=== PATIENT | female | born 1985 | race Caucasian/White ===

== ENCOUNTER 2017-12-24 10:51 | Emergency (ER) | payer OTHER ==
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
[2017-12-24] MEDS ORDERED: Norco 10/325 MG Tablet PO ONE (12:41)
[2017-12-24] MEDS ORDERED: Cyclobenzaprine 10 MG PO ONE (12:41)
[2017-12-24] MEDS ORDERED: Norco 10/325 MG Tablet ONE (12:44)
[2017-12-24] MEDS ORDERED: Cyclobenzaprine 10 MG ONE (12:44)
[2017-12-24 12:50] VITALS: BP 155/98; PULSE 92
[2017-12-24 12:51] VITALS: O2SAT 99
== END 2017-12-24 13:25 | disposition home or self-care (01) ==
LOC: ED 10:51
DX: M54.2 Cervicalgia (principal); S16.1XXA Strain of muscle, fascia and tendon at neck level, initial encounter; S10.93XA Contusion of unspecified part of neck, initial encounter; M54.5 Low back pain; M25.552 Pain in left hip; M25.551 Pain in right hip; V53.5XXA Driver of pick-up truck or van injured in collision with car, pick-up truck or van in traffic accident, initial encounter
CPT/HCPCS: 72050; 72100; 72170; 99284; A9270-GY

== ENCOUNTER 2018-07-20 15:54 | Emergency (ER) | payer OTHER ==
[2018-07-20] MEDS ORDERED: Zofran 4 MG/2 ML VIAL IV ONE (17:02)
[2018-07-20] MEDS ORDERED: Sodium Chloride 0.9% 1000 ML 1,000 ML IV STA (17:02)
[2018-07-20] MEDS ORDERED: Zofran 4 MG/2 ML VIAL ONE (17:09)
[2018-07-20] MEDS ORDERED: Sodium Chloride 0.9% 1000 ML 1,000 ML ONE (17:09)
[2018-07-20 17:15] LABS: Granulocyte Absolute (ANC) 4.11 (1.4-6.9); Hematocrit 37.9 % (35-47); Hemoglobin 12.9 gm/dl (12.0-16.0); Mean Cell Volume 89.4 fl (78-100); Mean Corpuscular Hemoglobin 30.4 pg (26-32); Mean Platelet Volume 9.8 fl (6-9.5); Platelet Count 249 K/mm3 (150-450); Red Blood Count 4.24 M/mm3 (4.1-5.4); White Blood Count 10.6 K/mm3 (4.0-10.5)
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
[2018-07-20 17:22] LABS: Appearance SLIGHTLY CLOUDY (CLEAR); Bacteria FEW /HPF (NEGATIVE); Bilirubin MODERATE (NEGATIVE); Blood SMALL Ery/ul (0-5); Epithelial Cells RARE /HPF (FEW); Glucose NEGATIVE (NEGATIVE); Ketones NEGATIVE (NEGATIVE); Leukocyte Esterase TRACE (NEGATIVE); Mucus MANY /HPF (NEGATIVE); Nitrite NEGATIVE (NEGATIVE); Protein,Urine Dip 30 (Negative); Specific Gravity 1.026 (1.005-1.025); Urobilinogen 4 mg/dL (0-1)
[2018-07-20 17:28] LABS: ALKALINE PHOSPHATASE 992 U/L (38-126); AMYLASE 75 U/L (30-110); ANION GAP 15.8 MEQ/L (5-15); BLOOD UREA NITROGEN 10 mg/dL (7-17); CHLORIDE 101 mmol/L (98-107); Calcium 9.9 mg/dL (8.4-10.2); Carbon Dioxide 27 mmol/L (22-30); Creatinine 1 0.61 mg/dL (0.52-1.04); Glucose 122 mg/dL (74-106); LIPASE 113 U/L (23-300); Potassium 3.8 mmol/L (3.5-5.1); SGOT/AST 422 U/L (14-36); SGPT/ALT 437 U/L (0-35); SODIUM 140 mmol/L (137-145); Total Protein 8.1 g/dL (6.3-8.2)
[2018-07-20 17:53] LABS: ATYPICAL LYMPHS 20 %; BAND 5 % (0.0-2.0); Lymphocytes 30 % (24-44); Monocyte 9 % (0.0-12.0); Myelocyte 1 %; Neutrophils 35 % (36.0-66.0); Platelet Estimate NORMAL (NORMAL); Total Cells Counted 100
[2018-07-20 17:54] LABS: Hypochromia 1+; Polychromasia 1+
[2018-07-20 18:01] VITALS: BP 150/105; PULSE 87
[2018-07-20 18:05] VITALS: O2SAT 96
[2018-07-22 06:57] LABS: HEPATITIS B VIRUS CORE TOT AB Non Reactive (Non Reactive); HEPATITIS C VIRUS ANTIBODY Non Reactive (Non Reactive); Hepatitis B Surface Antigen Non Reactive (Non Reactive)
== END 2018-07-20 18:20 | disposition home or self-care (01) ==
LOC: ED 15:54
DX: K75.9 Inflammatory liver disease, unspecified (principal); K75.89 Other specified inflammatory liver diseases
CPT/HCPCS: 36000; 36415; 80053; 80074; 81001; 81025; 82150; 83605; 83690; 85025; 87086; 96360; 96374; 99284; J2405

== ENCOUNTER 2018-11-20 19:46 | Emergency (ER) | payer OTHER ==
--- NOTE | 2018-11-20 19:50 | ERPHSYRPT ---
- History of Present Illness Time Seen by Provider: 11/20/18 19:50 Historian: patient Exam Limitations: no limitations Physician History: 33 y/o white female dx with hepatitis in 07/06. pt states she woke up with a headache. later in day she began with having vomiting and diarrhea. she denies abd pain. pts gi doctor is Dr. Santos out of [place] Timing/Duration: today Quality: aching, throbbing Pain Radiation: no radiation Severity of Pain-Max: none Severity of Pain-Current: none Modifying Factors: Improves With: vomiting Associated Symptoms: diarrhea, nausea, vomiting Previous symptoms: same symptoms as today Allergies/Adverse Reactions: morphine Adverse Reaction (Mild, Verified 12/24/17 11:15) Vomiting, headache tramadol Adverse Reaction (Mild, Verified 12/24/17 11:15) neck pain Home Medications: Sertraline HCl 100 mg DAILY 12/24/17 [History] Amphet Asp/Amphet/D-Amphet [Adderall 30 mg Tablet] 30 mg PO DAILY 07/20/18 [ History] Hx Tetanus, Diphtheria Vaccination/Date Given: Yes Hx Influenza Vaccination/Date Given: No Hx Pneumococcal Vaccination/Date Given: No - Review of Systems Constitutional: No Symptoms Eyes: No Symptoms Ears, Nose, & Throat: No Symptoms Respiratory: No Symptoms Cardiac: No Symptoms Abdominal/Gastrointestinal: Nausea, Vomiting, Diarrhea Genitourinary Symptoms: No Symptoms Musculoskeletal: No Symptoms Skin: No Symptoms Neurological: Headache Psychological: No Symptoms Endocrine: No Symptoms Hematologic/Lymphatic: No Symptoms Immunological/Allergic: No Symptoms All Other Systems: Reviewed and Negative - Past Medical History Pertinent Past Medical History: Yes Neurological History: Migraines ENT History: No Pertinent History Cardiac History: No Pertinent History Respiratory History: Bronchitis Endocrine Medical History: No Pertinent History Musculoskeletal History: No Pertinent History GI Medical History: GERD, Hernia, Ulcer History: Other Psycho-Social History: Anxiety, Depression Female Reproductive Disorders: Abnormal Uterine Bleeding, Fibroids Other Medical History: kidney cysts - no issues, no def. bronchitis february, continued cough- clear mucus - Past Surgical History Past Surgical History: Yes Neuro Surgical History: No Pertinent History Cardiac: No Pertinent History Respiratory: No Pertinent History Gastrointestinal: Cholecystectomy, Hernia Repair Musculoskeletal: No Pertinent History Female Surgical History: Tubal Ligation, Other Other Surgical History: D/E- dilation and evacuation - fetus . T&A - Social History Smoking Status: Current some day smoker How long have you smoked: 4-5 years Exposure to second hand smoke: Yes Drug Use: none Patient Lives Alone: No - Nursing Vital Signs Nursing Vital Signs: Initial Vital Signs Pulse Rate 87 11/20/18 19:55 Respiratory Rate 16 11/20/18 19:55 Blood Pressure 160/117 11/20/18 19:55 O2 Sat by Pulse Oximetry 99 11/20/18 19:55 Pain Scale Pain Intensity 9 - Physical Exam General Appearance: mild distress, alert, anxiety Eye Exam: PERRL/EOMI, eyes nml inspection Ears, Nose, Throat Exam: normal ENT inspection, moist mucous membranes Neck Exam: normal inspection, non-tender, supple, full range of motion Respiratory Exam: normal breath sounds, lungs clear, airway intact, No chest tenderness, No respiratory distress Cardiovascular Exam: regular rate/rhythm, normal heart sounds, normal peripheral pulses Gastrointestinal/Abdomen Exam: soft, normal bowel sounds, No tenderness, No guarding Pelvic Exam: not done Rectal Exam: not done Back Exam: normal inspection, normal range of motion, No CVA tenderness, No vertebral tenderness Extremity Exam: normal inspection, normal range of motion, pelvis stable Neurologic Exam: alert, oriented x 3, cooperative, abstract checker II-XII nml as tested Skin Exam: normal color, warm, dry Lymphatic Exam: No adenopathy SpO2 Interpretation: normal O2 Delivery: Room Air - Course Nursing assessment & vital signs reviewed: Yes Ordered Tests: Active Orders 24 hr Category Date Time Status Clean Catch Urine Specimen STAT Care 11/20/18 20:04 Active IV Insertion STAT Care 11/20/18 20:04 Active AMYLASE Stat Lab 11/20/18 20:20 Completed CBC W DIFF Stat Lab 11/20/18 20:20 Completed CMP Stat Lab 11/20/18 20:20 Completed HCG,QUALITATIVE URINE Stat Lab 11/20/18 20:20 Completed LIPASE Stat Lab 11/20/18 20:20 Completed Lactic Acid Stat Lab 11/20/18 20:24 Completed UA W/RFX UR CULTURE Stat Lab 11/20/18 20:20 Completed Urine Triage Profile Stat Lab 11/20/18 20:20 Completed Medication Summary Generic Name Dose Route Start Last Admin Trade Name Freq PRN Reason Stop Dose Admin Hydromorphone HCl 0.5 mg 11/20/18 22:24 Hydromorphone 1 Mg/Ml Ampule IV 11/20/18 22:25 STAT ONE Discontinued Medications Generic Name Dose Route Start Last Admin Trade Name Eric PRN Reason Stop Dose Admin Sodium Chloride 1,000 mls @ 999 mls/hr 11/20/18 20:04 11/20/18 20:23 Sodium Chloride 0.9% 1000 Ml IV 11/20/18 21:04 999 mls/hr .Q1H1M STA Administration Sodium Chloride Confirm 11/20/18 20:21 Sodium Chloride 0.9% 1000 Ml Administered 11/20/18 20:22 Dose 1,000 mls @ ud .ROUTE .STK-MED ONE Ondansetron HCl 4 mg 11/20/18 20:04 11/20/18 20:23 Zofran 4 Mg/2 Ml Vial IV 11/20/18 20:05 4 mg STAT ONE Administration Ondansetron HCl Confirm 11/20/18 20:21 Zofran 4 Mg/2 Ml Vial Administered 11/20/18 20:22 Dose 4 mg .ROUTE .STK-MED ONE Lab/Rad Data: Laboratory Result Diagrams 11/20/18 20:20 11/20/18 20:20 Laboratory Results 11/20/18 11/20/18 11/20/18 Range/Units 20:24 20:20 20:20 WBC (4.0-10.5) K/mm3 RBC (4.1-5.4) M/mm3 Hgb (12.0-16.0) gm/dl Hct (35-47) % MCV (78-100) fl MCH (26-32) pg MCHC (32-36) g/dl RDW (11.5-14.0) % Plt Count (150-450) K/mm3 MPV (6-9.5) fl Gran % (36.0-66.0) % Eos # (Auto) (0-0.5) Absolute Lymphs (auto) (1.0-4.6) Absolute Monos (auto) (0.0-1.3) Lymphocytes % (24.0-44.0) % Monocytes % (0.0-12.0) % Eosinophils % (0.00-5.0) % Basophils % (0.0-0.4) % Absolute Granulocytes (1.4-6.9) Basophils # (0-0.4) Sodium (137-145) mmol/L Potassium (3.5-5.1) mmol/L Chloride (98-107) mmol/L Carbon Dioxide (22-30) mmol/L Anion Gap (5-15) MEQ/L BUN (7-17) mg/dL Creatinine (0.52-1.04) mg/dL Estimated GFR ML/MIN Glucose (74-106) mg/dL Lactic Acid 0.6 (0.4-2.0) Calcium (8.4-10.2) mg/dL Total Bilirubin (0.2-1.3) mg/dL AST (14-36) U/L ALT (0-35) U/L Alkaline Phosphatase (38-126) U/L Serum Total Protein (6.3-8.2) g/dL Albumin (3.5-5.0) g/dL Amylase (30-110) U/L Lipase (23-300) U/L Urine Color (YELLOW) Urine Appearance (CLEAR) Urine pH (5-6) Ur Specific [place] (1.005-1.025) Urine Protein (Negative) Urine Ketones (NEGATIVE) Urine Blood (0-5) Rolando/ul Urine Nitrite (NEGATIVE) Urine Bilirubin (NEGATIVE) Urine Urobilinogen (0-1) mg/dL Ur Leukocyte Esterase (NEGATIVE) Urine WBC (Auto) (0-5) /HPF Urine RBC (Auto) (0-2) /HPF U Hyaline Cast (Auto) (0-2) /LPF U Epithel Cells (Auto) (FEW) /HPF Urine Bacteria (Auto) (NEGATIVE) /HPF Urine Mucus (Auto) (NEGATIVE) /HPF Urine Culture Reflexed (NO) Urine Glucose (NEGATIVE) mg/dL Urine HCG, Qual NEGATIVE (Negative) Urine Opiates Level NEGATIVE (NEGATIVE) Ur Methadone NEGATIVE (NEGATIVE) Urine Barbiturates NEGATIVE (NEGATIVE) Ur Phencyclidine (PCP) NEGATIVE (NEGATIVE) Urine Amphetamine POSITIVE (NEGATIVE) U Benzodiazepine Level NEGATIVE (NEGATIVE) Urine Cocaine NEGATIVE (NEGATIVE) Urine Marijuana (THC) POSITIVE (NEGATIVE) 11/20/18 11/20/18 11/20/18 Range/Units 20:20 20:20 20:20 WBC 11.9 H (4.0-10.5) K/mm3 RBC 4.75 (4.1-5.4) M/mm3 Hgb 14.6 (12.0-16.0) gm/dl Hct 41.8 (35-47) % MCV 88.0 (78-100) fl MCH 30.7 (26-32) pg MCHC 34.9 (32-36) g/dl RDW 13.0 (11.5-14.0) % Plt Count 315 (150-450) K/mm3 MPV 8.6 (6-9.5) fl Gran % 79.3 H (36.0-66.0) % Eos # (Auto) 0.07 (0-0.5) Absolute Lymphs (auto) 1.87 (1.0-4.6) Absolute Monos (auto) 0.49 (0.0-1.3) Lymphocytes % 15.7 L (24.0-44.0) % Monocytes % 4.1 (0.0-12.0) % Eosinophils % 0.6 (0.00-5.0) % Basophils % 0.3 (0.0-0.4) % Absolute Granulocytes 9.46 H (1.4-6.9) Basophils # 0.03 (0-0.4) Sodium 142 (137-145) mmol/L Potassium 3.5 (3.5-5.1) mmol/L Chloride 105 (98-107) mmol/L Carbon Dioxide 25 (22-30) mmol/L Anion Gap 15.3 H (5-15) MEQ/L BUN 13 (7-17) mg/dL Creatinine 0.51 L (0.52-1.04) mg/dL Estimated GFR > 60.0 ML/MIN Glucose 113 H (74-106) mg/dL Lactic Acid (0.4-2.0) Calcium 9.9 (8.4-10.2) mg/dL Total Bilirubin 0.40 (0.2-1.3) mg/dL AST 19 (14-36) U/L ALT 18 (0-35) U/L Alkaline Phosphatase 68 (38-126) U/L Serum Total Protein 8.2 (6.3-8.2) g/dL Albumin 4.8 (3.5-5.0) g/dL Amylase 83 (30-110) U/L Lipase 65 (23-300) U/L Urine Color YELLOW (YELLOW) Urine Appearance SLIGHTLY CLOUDY (CLEAR) Urine pH 6.0 (5-6) Ur Specific [place] 1.017 (1.005-1.025) Urine Protein NEGATIVE (Negative) Urine Ketones NEGATIVE (NEGATIVE) Urine Blood MODERATE (0-5) Rolando/ul Urine Nitrite NEGATIVE (NEGATIVE) Urine Bilirubin NEGATIVE (NEGATIVE) Urine Urobilinogen NEGATIVE (0-1) mg/dL Ur Leukocyte Esterase NEGATIVE (NEGATIVE) Urine WBC (Auto) 3-5 (0-5) /HPF Urine RBC (Auto) 3-5 (0-2) /HPF U Hyaline Cast (Auto) 0-2 (0-2) /LPF U Epithel Cells (Auto) RARE (FEW) /HPF Urine Bacteria (Auto) NONE (NEGATIVE) /HPF Urine Mucus (Auto) SLIGHT (NEGATIVE) /HPF Urine Culture Reflexed NO (NO) Urine Glucose NEGATIVE (NEGATIVE) mg/dL Urine HCG, Qual (Negative) Urine Opiates Level (NEGATIVE) Ur Methadone (NEGATIVE) Urine Barbiturates (NEGATIVE) Ur Phencyclidine (PCP) (NEGATIVE) Urine Amphetamine (NEGATIVE) U Benzodiazepine Level (NEGATIVE) Urine Cocaine (NEGATIVE) Urine Marijuana (THC) (NEGATIVE) - Progress Progress: improved Progress Note: 11/20/18 22:[address] santos at [id number]. ok to give narcotic pain med. follow up in his office tomorrow at 2pm Counseled pt/family regarding: lab results, diagnosis, need for follow-up, rad results - Departure Departure Disposition: Home Clinical Impression: Migraine headache, Vomiting and diarrhea Condition: Stable Critical Care Time: No Referrals: SARA MATHEWS MD [Primary Care Provider] - Additional Instructions: drink plenty of fluids. follow up with dr. santos in his clinic tomorrow at 2pm
[2018-11-20] MEDS ORDERED: Zofran 4 MG/2 ML VIAL IV ONE (20:04)
[2018-11-20] MEDS ORDERED: Sodium Chloride 0.9% 1000 ML 1,000 ML IV STA (20:04)
[2018-11-20 20:07] VITALS: PULSE 87
[2018-11-20] MEDS ORDERED: Sodium Chloride 0.9% 1000 ML 1,000 ML ONE (20:21)
[2018-11-20] MEDS ORDERED: Zofran 4 MG/2 ML VIAL ONE (20:21)
[2018-11-20 20:32] LABS: Absolute Neutrophil Ct (ANC) 9.46 (1.4-6.9); BASOPHIL % 0.3 % (0.0-0.4); Basophil (Absolute #) 0.03 (0-0.4); Eosinophil % 0.6 % (0.00-5.0); Eosinophil (Absolute #) 0.07 (0-0.5); Hematocrit 41.8 % (35-47); Hemoglobin 14.6 gm/dl (12.0-16.0); Lymphocyte (Absolute #) 1.87 (1.0-4.6); Lymphocytes % 15.7 % (24.0-44.0); Mean Corpuscular Hemoglobin 30.7 pg (26-32); Mean Corpuscular Hgb Concent. 34.9 g/dl (32-36); Mean Platelet Volume 8.6 fl (6-9.5); Monocyte (Absolute #) 0.49 (0.0-1.3); Monocytes % 4.1 % (0.0-12.0); Neutrophil % 79.3 % (36.0-66.0); Platelet Count 315 K/mm3 (150-450); Red Blood Count 4.75 M/mm3 (4.1-5.4); White Blood Count 11.9 K/mm3 (4.0-10.5)
[2018-11-20 20:36] LABS: Appearance SLIGHTLY CLOUDY (CLEAR); Bilirubin NEGATIVE (NEGATIVE); Blood MODERATE Ery/ul (0-5); Epithelial Cells RARE /HPF (FEW); Glucose NEGATIVE (NEGATIVE); Hyaline Casts 0-2 /LPF (0-2); Ketones NEGATIVE (NEGATIVE); Leukocyte Esterase NEGATIVE (NEGATIVE); Mucus SLIGHT /HPF (NEGATIVE); Nitrite NEGATIVE (NEGATIVE); Protein,Urine Dip NEGATIVE (Negative); Specific Gravity 1.017 (1.005-1.025); Urobilinogen NEGATIVE mg/dL (0-1)
[2018-11-20 20:47] LABS: ALBUMIN 4.8 g/dL (3.5-5.0); ALKALINE PHOSPHATASE 68 U/L (38-126); AMYLASE 83 U/L (30-110); ANION GAP 15.3 MEQ/L (5-15); Amphetamine,Urine POSITIVE (NEGATIVE); BLOOD UREA NITROGEN 13 mg/dL (7-17); Barbiturate,Urine NEGATIVE (NEGATIVE); Benzodiazepine,Urine NEGATIVE (NEGATIVE); CHLORIDE 105 mmol/L (98-107); Calcium 9.9 mg/dL (8.4-10.2); Carbon Dioxide 25 mmol/L (22-30); Cocaine,Urine NEGATIVE (NEGATIVE); Creatinine 1 0.51 mg/dL (0.52-1.04); Glucose 113 mg/dL (74-106); LIPASE 65 U/L (23-300); Methadone,Urine NEGATIVE (NEGATIVE); Opiate,Urine NEGATIVE (NEGATIVE); PCP,Urine NEGATIVE (NEGATIVE); Potassium 3.5 mmol/L (3.5-5.1); SGOT/AST 19 U/L (14-36); SGPT/ALT 18 U/L (0-35); SODIUM 142 mmol/L (137-145); THC,Urine POSITIVE (NEGATIVE); Total Protein 8.2 g/dL (6.3-8.2)
[2018-11-20] MEDS ORDERED: Hydromorphone 1 mg/ml Ampule IV ONE (22:24)
[2018-11-20] MEDS ORDERED: Hydromorphone 1 mg/ml Ampule ONE (22:50)
[2018-11-20 23:36] VITALS: BP 152/94; O2SAT 98
== END 2018-11-20 23:38 | disposition home or self-care (01) ==
LOC: ED 19:46
DX: G43.909 Migraine, unspecified, not intractable, without status migrainosus (principal); R11.10 Vomiting, unspecified; R19.7 Diarrhea, unspecified
CPT/HCPCS: 36000; 36415; 80053; 80307; 81001; 82150; 83605; 83690; 84703; 85025; 96360; 96374; 96375; 99284; J1170; J2405

== ENCOUNTER 2019-04-29 10:25 | Day surgery (SDC) | payer OTHER ==
[2019-04-29] MEDS ORDERED: Xylocaine 1% Vial 30 ML PF IJ ONE (10:26)
[2019-04-29] MEDS ORDERED: Sodium Chloride 0.9% 10 ML FLUSH Syringe IJ ONE (10:26)
[2019-04-29] MEDS ORDERED: Depo-Medrol 40 MG/ML IM ONE (10:26)
[2019-04-29] MEDS ORDERED: Ketamine HCl 50 MG/ML ONE (11:39)
[2019-04-29] MEDS ORDERED: DIPRIVAN 200 MG/20 ML IV ONE (11:39)
--- NOTE | 2019-04-29 12:28 | XRAY ---
Indication: Caudal STEPHANIE. Intraoperative fluoroscopy was provided for 38 seconds. 2 digital spot images submitted for interpretation demonstrates posterior midline needle tip projecting over the sacrococcygeal junction. Small amount of contrast injected for needle tip placement. Correlate with intraoperative findings/report.
--- NOTE | 2019-04-29 12:30 | XRAY ---
38 seconds fluoroscopy time in surgery for caudal STEPHANIE.
[2019-04-29] MEDS ORDERED: Lactated Ringers 1,000 ML IV ONE (14:45)
== END 2019-04-29 12:13 | disposition home or self-care (01) ==
LOC: SDC-PAIN 10:25
PROVIDERS: ATTEND Psychiatry & Neurology Pain Medicine
DX: M54.16 Radiculopathy, lumbar region (principal); Z79.899 Other long term (current) drug therapy
CPT/HCPCS: 62323; 72220; 77003; 84703; J1030; J2001; J2704; Q9966

== ENCOUNTER 2019-07-15 10:57 | Day surgery (SDC) | payer OTHER ==
[2019-07-15] MEDS ORDERED: Depo-Medrol 40 MG/ML IM ONE (10:58)
[2019-07-15] MEDS ORDERED: Xylocaine-Mpf 2% 5 Ml Vial IJ ONE (10:58)
--- NOTE | 2019-07-15 13:20 | XRAY ---
Indication: Bilateral L3-S1 MBB. Intraoperative fluoroscopy was provided for 18 seconds. Single digital spot image submitted for interpretation demonstrate posterior needle tips projecting over the expected course of the left and right L3-S1 nerve roots. Correlate with intraoperative findings/report.
--- NOTE | 2019-07-15 13:33 | XRAY ---
18 seconds fluoroscopy time in surgery for bilateral L3-S1 MBB.
[2019-07-15] MEDS ORDERED: Lactated Ringers 1,000 ML IV ONE (14:46)
== END 2019-07-15 12:57 | disposition home or self-care (01) ==
LOC: SDC-PAIN 10:57
PROVIDERS: ATTEND Psychiatry & Neurology Pain Medicine
DX: M47.816 Spondylosis without myelopathy or radiculopathy, lumbar region (principal); Z79.899 Other long term (current) drug therapy
CPT/HCPCS: 64493; 64494; 64495; 72020; 77002; 84703; J1030; J2704